=== PATIENT | male | born 2000 | race Asian ===

== ENCOUNTER 2019-10-21 06:13 | Emergency (ER) | payer BC ==
[~2019-10-21] VITALS: Ht 177.8 cm; Wt 74.9 kg
[2019-10-21 06:29] VITALS: Ht 177.8 cm; Wt 74.9 kg
[2019-10-21 07:44] LABS: microscopic required? NO
[2019-10-21 07:48] LABS: CALCIUM 9.3 mg/dL (8.5-10.1); CARBON DIOXIDE 25.8 mmol/L (21-32); CHLORIDE SERUM 104 mmol/L (98-107); CREATININE SERUM 1.3 mg/dL (0.7-1.3); GFR1 > 60 mL/min; GLUCOSE SERUM 88 mg/dL (74-106); POTASSIUM SERUM 4.1 mmol/L (3.5-5.1); SODIUM SERUM 141 mmol/L (136-145)
[2019-10-21 07:54] LABS: ALKALINE PHOSPHATASE 113 U/L (46-116); ALT/SGPT 23 U/L (16-63); AST/SGOT 19 U/L (15-37); BILIRUBIN TOTAL 1.12 mg/dL (0.20-1.00); TOTAL PROTEIN, SERUM 8.1 g/dL (6.4-8.2)
[2019-10-21 08:06] LABS: BASOPHIL % 0.2 % (0-2); PLATELET COUNT 208 x10^3mcL (130-400); RED CELL DISTRIBUTION WIDTH 12.9 % (11.5-14.5)
[2019-10-21 08:09] LABS: UA SPECIFIC GRAVITY 1.025 (1.005-1.035); urine erythrocyte NEGATIVE (NEGATIVE)
[2019-10-21 08:34] LABS: AMPHETAMINE QUAL UR NONE DETECTED (See below)
[2019-10-21 10:40] VITALS: BP 111/88
== END 2019-10-21 10:40 | disposition home or self-care (01) ==
LOC: ED 06:13
PROVIDERS: Emergency Medicine
DX: R51 Headache (principal); R11.2 Nausea with vomiting, unspecified
CPT/HCPCS: 87804; J1885; J2405